=== PATIENT | male | born 1980 | race Caucasian/White ===

== ENCOUNTER 2017-07-11 15:23 | Emergency (ER) | payer SELFPAY ==
[~2017-07-11] VITALS: Ht 182.9 cm; Wt 95.3 kg
[~2017-07-11 15:23] MED LIST: CIPR500T78 PO; HYDR1TAB8 OP; ONDA-42 SL; OXYC-201 PO; TMSL.4C PO
--- OUTSIDE RECORDS SUMMARY | 2017-07-11 15:29 | XMS REPORT | Continuity of Care Document ---
Author Author [facility] Organization [facility] Address Unknown Phone Unavailable Allergies Active Description Code Type Severity Reaction Onset Reported/Identified Relationship to Patient Clinical Status Yes No Known Drug Allergies [id number] Drug Allergy Unknown N/A 12/11/2013 Medications There is no data. Problems Date Dx Coded Attending Type Code Diagnosis Diagnosed By 12/11/2013 ANDREA MILES DO Ot 591 12/11/2013 ANDREA MILES DO Ot 592.1 12/11/2013 ANDREA MILES DO Ot 789.09 02/17/2015 SHAN GOLDSMITH, WAYNE R Ot R91.1 02/22/2015 SHAN GOLDSMITH, WAYNE R Ot R91.1 02/28/2015 SHAN GOLDSMITH, WAYNE R Ot R91.1 02/28/2015 SHAN GOLDSMITH, WAYNE R Ot R91.1 02/28/2015 SHAN GOLDSMITH, WAYNE R Ot R91.1 03/27/2015 SHAN GOLDSMITH, WAYNE R Ot R91.1 03/27/2015 SHAN GOLDSMITH, WAYNE R Ot R91.1 04/12/2015 SHAN GOLDSMITH, WAYNE R Ot R91.1 04/12/2015 SHAN GOLDSMITH, WAYNE R Ot R91.1 07/17/2015 SHAN GOLDSMITH, WAYNE R Ot R91.1 07/19/2015 MARLY JESUS APRN Ot M54.16 Procedures There is no data. Results There is no data. Encounters ACCT No. Visit Date/Time Discharge Status Pt. Type Provider Facility Loc./Unit Complaint [id number] 07/26/2015 13:03:00 07/26/2015 23:59:59 CLS Outpatient CHANTELL GREEN [facility] WONG [id number] 07/17/2015 11:42:00 07/17/2015 12:45:00 DIS Outpatient MARLY JESUS APRN [facility] ER [id number] 02/21/2015 09:43:00 02/21/2015 23:59:59 CLS Outpatient WAYNE TORREZ MD [facility] RAD [id number] 02/15/2015 15:54:00 02/15/2015 23:59:59 CLS Outpatient WAYNE TORREZ MD [facility] RAD [id number] 01/09/2015 09:45:00 01/09/2015 23:59:59 CLS Outpatient VELVET ANDRADE MENDER HAND [facility] QUICK [id number] 12/11/2013 07:45:00 12/11/2013 09:10:00 DIS Emergency ANDREA MILES DO [facility] ER
[2017-07-11] MEDS ORDERED: LIDOCAINE 1% INJ 50 ML (XYLOCAINE) VIAL ONE (16:08)
--- NOTE | 2017-07-11 16:44 | ED Upper Extremity ---
General Chief Complaint: Laceration Stated Complaint: L HAND LAC Nursing Triage Note: PT TO ED REPORTING LACERATION TO TOP OF LEFT HAND WITH BOX KNIFE ACCIDENTALLY AT HOME WHITTLING ON WOOD. PT ARRIVED WITH SELF PRESSURE DRSG AND TOURNIQUET TIED AROUND ARM. 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 He was using a box knife and WHITTLING . He lacerated himself on the dorsum of the left hand. He presented at the [facility] immediate care facility. They were concerned that he might have had a tendon involvement and sent him here. Onset: just prior to arrival Pain/Injury Location: left hand Method of Injury: incised Allergies and Home Medications Allergies Coded Allergies: No Known Drug Allergies (Unverified , 12/11/13) Home Medications Ciprofloxacin HCl 500 Mg Tablet, 500 MG PO BID Prescribed by: ANDREA MILES on 12/11/13 0903 Hydrocodone Bit/Ibuprofen 1 Each Tablet, 1-2 EACH OP Q4-6HR PRN for PAIN FOR PAIN Prescribed by: ANDREA MILES on 12/11/13 09 Ondansetron Hcl 4 Mg Tab, 4 MG SL Q4H FOR NAUSEA AND VOMITING Prescribed by: ANDREA MILES on 12/11/13 09 Oxycodone HCl/Acetaminophen 1 Each Tablet, 1 EACH PO Q4H PRN for PAIN Prescribed by: MARLY JESUS on 07/17/15 1233 Tamsulosin Hcl 0.4 Mg Cap, 0.4 MG PO DAILY Prescribed by: ANDREA MILES on 12/11/13 0903 Patient Home Medication List Home Medication List Reviewed: Yes Constitutional: see HPI EENTM: no symptoms reported Respiratory: no symptoms reported Cardiovascular: no symptoms reported Gastrointestinal: no symptoms reported Skin: see HPI Past Tdghcko-Fvitzw-Agymwz Hx Patient Social History Alcohol Use: Occasionally Uses Recreational Drug Use: No Smoking Status: Never a Smoker 2nd Hand Smoke Exposure: No Recent Foreign Travel: No Contact w/Someone Who Travel: No Recent Infectious Disease Expo: No Recent Hopitalizations: No Immunizations Up To Date Tetanus Booster (TDap): Less than 5yrs Seasonal Allergies Seasonal Allergies: No Past Medical History Surgeries: No Respiratory: No Cardiac: No Neurological: No Reproductive Disorders: No Sexually Transmitted Disease: No Genitourinary: No Kidney Stones Gastrointestinal: No Musculoskeletal: No Endocrine: No HEENT: No Cancer: No Psychosocial: No Integumentary: No Blood Disorders: No Physical Exam Vital Signs Vital Signs - First Documented 07/11/17 15:29 Temp 97.5 Pulse 57 Resp 20 B/P (MAP) 138/83 (101) Pulse Ox 98 O2 Delivery Room Air Capillary Refill : Less Than 3 Seconds General Appearance: WD/WN, no apparent distress HEENT: normal ENT inspection Neck: full range of motion Cardiovascular: normal peripheral pulses, regular rate, rhythm, no edema, no gallop, no JVD, no murmur Respiratory: chest non-tender, lungs clear, normal breath sounds, no respiratory distress, no accessory muscle use Comments The patient has a 5 cm shallow laceration between the second and third metacarpals. It does not extend into the deep tissue. The pain is noted but not leaking. He is able to clench and extend his fingers. Procedures/Interventions Wound Location: Upper Extremities (dorsum left hand) Wound Length (cm): 5 Wound's Depth, Shape: superficial, linear Wound Explored: clean Betadine Prep?: Yes Anesthesia: 1% Lidocaine Volume Anesthetic (ccs): 3 Wound Debrided: minimal Suture: Prolene Suture Size: 4-0 Number of Sutures: 7 Sterile Dressing Applied?: Yes Progress/Results/Core Measures Vital Signs/I&O 07/11/17 15:29 Temp 97.5 Pulse 57 Resp 20 B/P (MAP) 138/83 (101) Pulse Ox 98 O2 Delivery Room Air Blood Pressure Mean: 101 Departure Communication (Admissions) The wound was closed easily and with good approximation. There was some swelling as the wound was closed. The wound was then dressed with gauze and an elastic pressure wrap. The patient had a tetanus shot about 2 years ago. Impression Primary Impression: laceration dorsum left hand Disposition: 01 HOME, SELF-CARE Condition: Improved Departure-Patient Inst. Decision time for Depature: 16:47 Referrals: WAYNE TORREZ MD (PCP/Family) Primary Care Physician Patient Instructions: Laceration Repair With Stitches (DC) Add. Discharge Instructions: All discharge instructions reviewed with patient and/or family. Voiced understanding. Keep wound clean and dry. Redress daily. Return in one week for suture removal. If you see pus or evidence of streaking up the arm return to the ER for reevaluation TSERING TRAN MD Jul 11, 2017 16:44
[2017-07-11 16:50] VITALS: BP 138/83
== END 2017-07-11 16:50 | disposition home or self-care (01) ==
LOC: EDUNIT# 15:23 → ER 15:25
DX: S61.412A Laceration without foreign body of left hand, initial encounter (principal); Z87.442 Personal history of urinary calculi; W26.0XXA Contact with knife, initial encounter; Y92.009 Unspecified place in unspecified non-institutional (private) residence as the place of occurrence of the external cause
CPT/HCPCS: 12002

== ENCOUNTER 2017-07-19 12:22 | Emergency (ER) | payer SELFPAY ==
[~2017-07-19] VITALS: Ht 177.8 cm; Wt 77.1 kg
[2017-07-19 12:31] VITALS: BP 122/67
== END 2017-07-19 12:31 | disposition home or self-care (01) ==
LOC: EDUNIT# 12:22 → ER 12:23
DX: S61.412D Laceration without foreign body of left hand, subsequent encounter (principal); X58.XXXD Exposure to other specified factors, subsequent encounter